=== PATIENT | female | born 1985 | race Caucasian/White ===

== ENCOUNTER → 2019-11-13 | Outpatient (CLI) | payer OTHER ==
[~2019-11-13] MED LIST: ALBU90OI INH; KEFLEX250 M1; PROCODE120 PO; Prednisone20 MG PO; SPACE CHAMBER1 EACH MC
== END ==
LOC: LAB 12:20 → LAB SHORT 12:20
DX: O91.111 Abscess of breast associated with pregnancy, first trimester (principal)
CPT/HCPCS: 87070; 87075; 87076; 87077; 87185; 87186; 87205

== ENCOUNTER → 2020-01-22 | Outpatient (CLI) | payer OTHER ==
[2020-01-22 19:48] LABS: U Amphetamine Screen Not Detected; U Barbituate Screen Not Detected; U Benzodiazapine Screen Not Detected; U Buprenorphine Screen Not Detected; U Cannabinoids Screen DETECTED; U Cocaine Screen Not Detected; U Methadone Screen Not Detected; U Methamphetamine Screen DETECTED; U Opiates Screen Not Detected; U Oxycodone Screen Not Detected; U Phencyclidine Screen Not Detected; U Propoxyphene Screen Not Detected
== END | disposition home or self-care (01) ==
LOC: LAB SHORT 18:12 → LAB 18:12
PROVIDERS: Family Medicine
DX: Z34.02 Encounter for supervision of normal first pregnancy, second trimester (principal); Z3A.26 26 weeks gestation of pregnancy
CPT/HCPCS: 87086

== ENCOUNTER → 2020-04-28 | Outpatient (CLI) | payer OTHER | END | disposition home or self-care (01) | LOC: LAB 17:28 → LAB SHORT 17:28 | DX: O91.111 Abscess of breast associated with pregnancy, first trimester (principal) | CPT/HCPCS: 87070; 87077; 87186; 87205 ==

== ENCOUNTER → 2021-11-25 | Outpatient (CLI) | payer OTHER | LOC: LAB SHORT 07:43 | DX: L08.9 Local infection of the skin and subcutaneous tissue, unspecified (principal); D22.72 Melanocytic nevi of left lower limb, including hip; D22.61 Melanocytic nevi of right upper limb, including shoulder; D22.5 Melanocytic nevi of trunk; L57.8 Other skin changes due to chronic exposure to nonionizing radiation; L85.3 Xerosis cutis; B35.3 Tinea pedis | CPT/HCPCS: 87070; 87205 ==

== ENCOUNTER 2024-07-30 18:06 | Emergency (ER) | payer OTHER ==
[~2024-07-30] VITALS: Ht 180.3 cm; Wt 113.4 kg
[2024-07-30 18:23] VITALS: BP 191/109
[2024-07-30] MEDS ORDERED: Ofloxacin 0.3% Otic Soln 5 ML LEFTEAR ONE (18:35)
[2024-07-30] MEDS ORDERED: OCUFLOX510 LEFTEAR (18:57)
== END 2024-07-30 19:12 | disposition home or self-care (01) ==
LOC: ER 18:06
DX: H60.92 Unspecified otitis externa, left ear (principal); F17.200 Nicotine dependence, unspecified, uncomplicated
CPT/HCPCS: 99282; A9270

== ENCOUNTER 2024-10-02 14:39 | Emergency (ER) | payer OTHER ==
[~2024-10-02] VITALS: Ht 180.3 cm; Wt 115.2 kg
[~2024-10-02 14:39] MED LIST changes: +OCUFLOX510 LEFTEAR
[2024-10-02 15:00] VITALS: BP 176/114
== END 2024-10-02 16:42 | disposition home or self-care (01) ==
LOC: ER 14:39
DX: S61.011A Laceration without foreign body of right thumb without damage to nail, initial encounter (principal); F17.210 Nicotine dependence, cigarettes, uncomplicated; W26.9XXA Contact with unspecified sharp object(s), initial encounter; Z79.899 Other long term (current) drug therapy
CPT/HCPCS: 99282